=== PATIENT | female | born 1960 | race Caucasian/White ===

== ENCOUNTER 2018-07-19 20:55 | Emergency (ER) | payer OTHER ==
[~2018-07-19] VITALS: Ht 172.7 cm; Wt 63.0 kg
[2018-07-19] MEDS ORDERED: TOPIRAMATE 100MG TABLET PO SCH (21:30)
[2018-07-19 22:36] VITALS: BP 111/46
== END 2018-07-19 22:36 | disposition home or self-care (01) ==
LOC: ER 20:55
DX: R56.9 Unspecified convulsions (principal); F41.0 Panic disorder [episodic paroxysmal anxiety]; F41.9 Anxiety disorder, unspecified; Z88.0 Allergy status to penicillin; Z98.890 Other specified postprocedural states
CPT/HCPCS: 71045; 93005; 99284